=== PATIENT | female | born 2005 | race Two or more races ===

== ENCOUNTER 2024-10-26 08:35 | Emergency (ER) | payer BC ==
[~2024-10-26] VITALS: Ht 160 cm; Wt 66.9 kg
[2024-10-26 09:53] LABS: Basophils # (auto) 0 10 ^3/uL (0-0.2); Basophils % (auto) 0.7 % (0.0-2.0); Eosinophils # (auto) 0 10 ^3/uL (0-0.8); Hematocrit 39.1 % (36.0-46.0); Hemoglobin 13.9 g/dL (12.2-16.2); Lymphocytes # (auto) 0.9 10 ^3/uL (0.4-5.4); Lymphocytes % (auto) 20.1 % (10.0-50.0); Mean Corpuscular Hemoglobin 31.6 pg (28.0-32.0); Mean Corpuscular Hgb Conc. 35.6 g/dL (32.0-36.0); Mean Corpuscular Volume 88.8 fL (80.0-100.0); Monocytes # (auto) 0.5 10 ^3/uL (0-1.3); Monocytes % (auto) 10.1 % (0.0-12.0); Neutrophils # (auto) 3.1 10 ^3/uL (1.6-8.6); Neutrophils % (auto) 68.1 % (37.0-80.0); Nucleated Red Blood Cells % 0.1 %; Platelet Count (auto) 168 10^3/uL (140-450); Red Blood Cells 4.41 10^6/uL (4.0-5.20); Red Cell Distribution Width 12.6 % (11.8-14.3); White Blood Cell 4.5 10^3/uL (4.4-10.8)
[2024-10-26 10:01] LABS: Chloride 106 mmol/L (98-107); Sodium 142 mmol/L (136-145)
[2024-10-26 10:02] LABS: Anion Gap 11 (5-15); Carbon Dioxide 25 mmol/L (20-31)
[2024-10-26 10:03] LABS: Calcium 9.5 mg/dL (8.7-10.4)
[2024-10-26 10:07] LABS: Glucose 92 mg/dL (74-106)
[2024-10-26 10:08] LABS: BUN/Creatinine Ratio 12.5 (10.0-20.0)
[2024-10-26 10:11] LABS: Blood Urea Nitrogen 8 mg/dL (9-23); Potassium 3.4 mmol/L (3.5-5.1)
--- NOTE | 2024-10-26 10:30 | ED.PDOC ---
SALES OFFICER HPI Comments 19 year old female presents to the ED with chief complaint of vaginal bleeding. Patient reports that she had taken a test 2 days ago, coming back positive. Patient relays that since yesterday she had a chunk of blood and mucous come out of her vagina after going to the bathroom, but this morning she started to experience some vaginal bleeding. Patient denies any abdominal pain, dysuria, hematuria, fever, chills, nausea, vomiting, or vaginal discharge. Chief Complaint: Vaginal Bleed Time Seen by MD: 10:24 Reviewed Notes: Nurses Notes, Medications, Allergies Allergies: Coded Allergies: Methylprednisolone (Verified Allergy, Severe, 10/26/24) Information Source: Patient Mode of Arrival: Ambulatory Timing: Days Prehospital treatment: None Severity: Moderate Vaginal Discharge: None Vaginal Lesions: None Bleeding Quality: Bright Red, Clotted Onset Of Mass/Bleeding: Spontaneous Sexual Activity: Last Consensual [place]: Unknown Control: None History of: Current Associated Signs and Symptoms: Vaginal Bleeding Past Medical History PAST MEDICAL HISTORY: Denies Surgical History: Denies all surgeries SCAFFOLD ERECTOR History: No Pertinent SCAFFOLD ERECTOR History Family History Family History: Reviewed,noncontributory to illness Social History Smoker: Non-Smoker Alcohol: Denies ETOH Use Drugs: Denies Drug Use Lives In: Home Constitutional: denies: chills, diaphoresis, fatigue, fever, malaise, sweats, weakness, others EENTM: denies: blurred vision, double vision, ear bleeding, ear discharge, ear drainage, ear pain, ear ringing, eye pain, eye redness, hearing loss, mouth pain, mouth swelling, nasal discharge, nose bleeding, nose congestion, nose pain, photophobia, tearing, throat pain, throat swelling, voice changes, others Respiratory: denies: cough, hemoptysis, orthopnea, SOB at rest, shortness of breath, SOB with excertion, stridor, wheezing, others Cardiovascular: denies: chest pain, dizzy spells, diaphoresis, Dyspnea on exertion, edema, irregular heart beat, left arm pain, lightheadedness, palpitations, PND, syncope, others Gastrointestinal: denies: abdomen distended, abdominal pain, blood streaked bowels, constipated, diarrhea, dysphagia, difficulty swallowing, hematemesis, melena, nausea, poor appetite, poor fluid intake, rectal bleeding, rectal pain, vomiting, others Genitourinary: reports: abnormal vagina bleeding, ; denies: burning, dyspareunia, dysuria, flank pain, frequency, hematuria, incontinence, pain, vagina discharge, urgency, others Neurological: denies: dizziness, fainting, headache, left sided numbness, left sided weakness, numbness, paresthesia, pre-existing deficit, right sided numbness, right sided weakness, seizure, speech problems, tingling, tremors, weakness, others Musculoskeletal: denies: back pain, gout, joint pain, joint swelling, muscle pain, muscle stiffness, neck pain, others Integumetry: denies: bruises, change in color, change in hair/nails, dryness, laceration, lesions, lumps, rash, wounds, others Allergic/Immunocompromised: denies: Difficulty Healing, Frequent Infections, Hives, Itching, others Hematologic/Lymphatic: denies: anemia, blood clots, easy bleeding, easy bruising, swollen glands, others Endocrine: denies: excessive hunger, excessive sweating, excessive thirst, excessive urination, flushing, intolerance to cold, intolerance to heat, unexplained weight gain, unexplained weight loss, others Psychiatric: denies: anxiety, bipolar disorder, depression, hopeless, panic dis order, schizophrenia, sleepless, suicidal, others All Other Systems: Reviewed and Negative Physical Exam General Appearance: No Apparent Distress, Normal HEENT: Normal ENT Inspection, Pharynx Normal, TMs Normal Neck: Full Range of Motion, Non-Tender, Normal, Normal Inspection Respiratory: Chest Non-Tender, Lungs Clear, No Accessory Muscle Use, No Respiratory Distress, Normal Breath Sounds Cardiovascular: No Edema, No JVD, No Murmur, No Gallop, Normal Peripheral Pulses, Regular Rate/Rhythm Breast Exam: Deferred Gastrointestinal: No Organomegaly, Non Tender, No Pulsatile Mass, Normal Bowel Sounds, Soft Genitalia: Deferred Pelvic: Deferred Rectal: Deferred Extremities: No calf tenderness, Normal capillary refill, Normal inspection, Normal range of motion, Non-tender, No pedal edema Musculoskeletal : Apperance: Normal Neurologic: Alert, neuropsychiatrist II-XII nml as Tested, No Motor Deficits, Normal Affect, Normal Mood, No Sensory Deficits Cerebellar Function: Normal Reflexes: Normal Skin: Dry, Normal Color, Warm Lymphatic: No Adenopathy Was a procedure done? Was a procedure done?: No Differential Diagnosis (SCAFFOLD ERECTOR) Vaginal Bleeding: - Threatened X-Ray, Labs, Meds, VS Vital Signs Date Time Temp Pulse Resp B/P (MAP) Pulse Ox O2 Delivery O2 Flow Rate FiO2 10/26/24 11:41 98.7 106 16 113/97 (102) 100 98.7 10/26/24 08:54 98.5 115 16 121/77 (92) 97 98.5 Lab Test 10/26/24 10:53 10/26/24 09:38 Range/Units Urine Color Yellow Yellow Urine Clarity Turbid H Clear Urine pH 7.5 5.0-9.0 Urine Specific [place] 1.026 1.001-1.035 Urine Protein Trace H Negative Urine Ketones Negative Negative Urine Blood 2+ H Negative /uL Urine Nitrite Negative Negative Urine Bilirubin Negative Negative Urine Urobilinogen Normal Negative mg/dL Urine Leukocyte Esterase 3+ Negative /uL Urine RBC 5 0 - 4 /hpf Urine Microscopic WBC 10 H 0-5 /HPF Urine Squamous Epithelial Cells Mod <5 /hpf Urine Bacteria None seen None Seen /hpf Urine Mucus Few None Seen Urine Glucose Normal Normal mg/dL White Blood Count 4.5 4.4-10.8 10^3/uL Red Blood Count 4.41 4.0-5.20 10^6/uL Hemoglobin 13.9 12.2-16.2 g/dL Hematocrit 39.1 36.0-46.0 % Mean Corpuscular Volume 88.8 80.0-100.0 fL Mean Corpuscular Hemoglobin 31.6 28.0-32.0 pg Mean Corpuscular Hemoglobin Concent 35.6 32.0-36.0 g/dL Red Cell Distribution Width 12.6 11.8-14.3 % Platelet Count 168 140-450 10^3/uL Mean Platelet Volume 7.2 6.9-10.8 fL Neutrophils (%) (Auto) 68.1 37.0-80.0 % Lymphocytes (%) (Auto) 20.1 10.0-50.0 % Monocytes (%) (Auto) 10.1 0.0-12.0 % Eosinophils (%) (Auto) 1.0 0.0-7.0 % Basophils (%) (Auto) 0.7 0.0-2.0 % Neutrophils # (Auto) 3.1 1.6-8.6 10 ^3/uL Lymphocytes # (Auto) 0.9 0.4-5.4 10 ^3/uL Monocytes # (Auto) 0.5 0-1.3 10 ^3/uL Eosinophils # (Auto) 0 0-0.8 10 ^3/uL Basophils # (Auto) 0 0-0.2 10 ^3/uL Nucleated Red Blood Cells 0.1 % Sodium Level 142 136-145 mmol/L Potassium Level 3.4 L 3.5-5.1 mmol/L Chloride Level 106 98-107 mmol/L Carbon Dioxide Level 25 20-31 mmol/L Anion Gap 11 5-15 Blood Urea Nitrogen 8 L 9-23 mg/dL Creatinine 0.64 0.550-1.02 mg/dL Glomerular Filtration Rate Calc 130 >90 mL/min BUN/Creatinine Ratio 12.5 10.0-20.0 Serum Glucose 92 74-106 mg/dL Calcium Level 9.5 8.7-10.4 mg/dL Beta HCG, Quantitative 68.2 H 1.5-4.2 mIU/mL Time of 1ST Reevaluation: 11:24 Reevaluation 1ST: Unchanged Patient Education/Counseling: Diagnosis, Treatment Family Education/Counseling: No Family Present Additional Information The following tests were ordered, and results were reviewed by me: CBC, BMP, Beta HCG Quant, UA, ABORH Additional Information was gathered from interviewing the following independent historians: None I reviewed and agreed with the following test results read by other providers: None I discussed treatment and results with medical personnel and: patient Comprehensive systems review obtained and negative except for what is stated in the HPI. Departure 1 Departure Time of Disposition: 11:43 (Patient with a threatened miscarriage. We will discharge patient home with outpatient follow up) Impression: Primary Impression: Threatened miscarriage in early Disposition: 01 HOME / SELF CARE / HOMELESS Condition: Stable Referrals: JAREN HAM DO Additional Instructions: You have a threatened miscarriage. Your beta hcg level today was 68.2. Your beta level is too low to see anything on ultrasound. You should follow up with OBGYN within three days to recheck your blood work. If your symptoms worsen or you have any other concerns then please return to the ER. Discharged With: Self Critical Care Note Critical Care Time?: No Stability Stability form required: No Heart Score Heart Score: Heart Score Response (Comments) Value History N/A 0 EKG N/A 0 Age N/A 0 Risk Factors N/A 0 Troponin N/A 0 Total 0 I personally scribed for ESSENCE NAVA MD ([email or web address]) on 10/26/24 at 10:30. Electronically submitted by Zane Nagel ([email or web address]). ESSENCE NAVA MD October 26, 2024 10:30
[2024-10-26 10:55] LABS: Urine Bacteria None Seen /hpf (None Seen)
[2024-10-26 11:04] LABS: Urine Blood 2+ /uL (Negative); Urine Clarity Turbid (Clear); Urine Color Yellow (Yellow); Urine Mucus FEW (None Seen); Urine Protein, UAD TRACE (Negative); Urine Specific Gravity 1.026 (1.001-1.035); Urine Squamous Epithelial Cell MOD /hpf (<5); Urine Urobilinogen Normal (Negative); Urine WBC 10 /HPF (0-5); Urine pH 7.5 (5.0-9.0)
[2024-10-26 11:41] VITALS: BP 113/97; PULSE 106; RESP 16; TEMP 98.7; O2SAT 100
== END 2024-10-26 11:53 | disposition home or self-care (01) ==
LOC: ER 08:42
DX: O20.0 Threatened abortion (principal); Z79.899 Other long term (current) drug therapy
CPT/HCPCS: 36415; 80048; 81001; 84702; 85025; 86900; 86901

== ENCOUNTER 2024-10-26 20:35 | Emergency (ER) | payer BC ==
[~2024-10-26] VITALS: Ht 160 cm; Wt 65.0 kg
--- NOTE | 2024-10-26 21:19 | ED.PDOC ---
PHYSICIAN SUPPORT COORDINATOR HPI Comments 19 year old female presents to the ED with a chief complaint of vaginal bleeding onset today (10/26/24). Patient was seen in this ED today, was told she was experiencing threatened miscarriage, follow up with OBGYN. Patient states she took at home test 2 days ago, tested positive. P:0. Since she was discharged from ED, patient noticed bleeding worsen as well as abdominal pain/suprapubic pain, rates pain 10/10. She is also experiencing generalized weakness, dizziness. She was currently on Amoxicillin for tonsillitis that was diagnosed 1 week ago. Patient denies any dysuria, fever, chills, nausea, vomiting, chest pain, shortness of breath. No other symptoms or modifying factors present at this time. Chief Complaint: Abdominal Pain Time Seen by MD: 21:00 Reviewed Notes: Medications, Allergies Allergies: Coded Allergies: Methylprednisolone (Verified Allergy, Severe, 10/26/24) Information Source: Patient, Relative Mode of Arrival: Ambulatory Timing: Hours Prehospital treatment: None Severity: Moderate Vaginal Discharge: None Vaginal Lesions: None Bleeding Quality: Bright Red, Clotted Vaginal Mass: None Onset Of Mass/Bleeding: Spontaneous Sexual Activity: Control: None History of: Current Symptoms of Possible : Missed Period Associated Signs and Symptoms: Vaginal Bleeding, Abdominal Pain, Cramping Vital Signs Vital Signs Date Time Temp Pulse Resp B/P (MAP) Pulse Ox O2 Delivery O2 Flow Rate FiO2 10/26/24 22:50 98.4 78 18 122/71 (88) 100 98.4 10/26/24 22:50 Room Air* 0 21 Physical Exam General: Awake, alert and oriented. No acute distress. Skin: Skin in warm, dry and intact. Appropriate color for ethnicity. HEENT: The head is normocephalic and atraumatic. Conjunctivae are clear without exudates or hemorrhage. Sclera is non-icteric. EOM are intact. No signs of nystagmus. Eyelids are normal in appearance without swelling or lesions. Oral mucosa is pink and moist Neck: The neck is supple with normal range of motion. No JVD. Cardiac: Heart rate and rhythm are normal. No murmurs, gallops, or rubs are auscultated. Respiratory: No signs of respiratory distress. Lung sounds are clear in all lobes bilaterally without rales, rhonchi, or wheezes. Abdominal: Abdomen is soft, non-tender without distention. Bowel sounds are present and normoactive in all four quadrants. Extremities: Upper and lower extremities are atraumatic in appearance without deformity or edema. Neurological: The patient is awake, alert and oriented to person, place, and time with normal speech. Speech is clear. There is no facial asymmetry. Psychiatric: Appropriate mood and affect. Good judgement and insight. Review of Systems: REVIEW OF SYSTEMS: No fever, no chills, or fatigue HEENT: No sore throat, no earache, no congestion, no neck pain. Cardiac: No chest pain. No palpitations. Lungs: No shortness of breath, no cough. GI: No nausea, no vomiting, no diarrhea, no constipation, no abdominal pain : No dysuria, frequency, or urgency. No hematuria. Musculoskeletal: No joint pain , no joint swelling, no extremity edema. Skin: No rash, no itching. Neuro: No headache, no dizziness, no weakness Past Medical History PAST MEDICAL HISTORY: Denies Surgical History: Denies all surgeries CLINICAL PATHOLOGIST History: No Pertinent CLINICAL PATHOLOGIST History Family History Family History: Reviewed,noncontributory to illness Social History Smoker: Non-Smoker Alcohol: Denies ETOH Use Drugs: Denies Drug Use Lives In: Home Was a procedure done? Was a procedure done?: No X-Ray, Labs, Meds, VS Vital Signs Date Time Temp Pulse Resp B/P (MAP) Pulse Ox O2 Delivery O2 Flow Rate FiO2 10/26/24 22:50 98.4 78 18 122/71 (88) 100 98.4 10/26/24 22:50 Room Air* 0 21 10/26/24 20:50 98.4 118 17 138/97 (111) 99 98.4 Lab Test 10/26/24 21:10 10/26/24 20:56 Range/Units White Blood Count 5.8 # 4.4-10.8 10^3/uL Red Blood Count 4.24 4.0-5.20 10^6/uL Hemoglobin 13.5 12.2-16.2 g/dL Hematocrit 37.0 36.0-46.0 % Mean Corpuscular Volume 87.3 80.0-100.0 fL Mean Corpuscular Hemoglobin 31.8 28.0-32.0 pg Mean Corpuscular Hemoglobin Concent 36.5 H 32.0-36.0 g/dL Red Cell Distribution Width 12.4 11.8-14.3 % Platelet Count 180 140-450 10^3/uL Mean Platelet Volume 7.4 6.9-10.8 fL Neutrophils (%) (Auto) 62.8 37.0-80.0 % Lymphocytes (%) (Auto) 25.0 10.0-50.0 % Monocytes (%) (Auto) 10.7 0.0-12.0 % Eosinophils (%) (Auto) 0.7 0.0-7.0 % Basophils (%) (Auto) 0.8 0.0-2.0 % Neutrophils # (Auto) 3.6 1.6-8.6 10 ^3/uL Lymphocytes # (Auto) 1.4 0.4-5.4 10 ^3/uL Monocytes # (Auto) 0.6 0-1.3 10 ^3/uL Eosinophils # (Auto) 0 0-0.8 10 ^3/uL Basophils # (Auto) 0 0-0.2 10 ^3/uL Nucleated Red Blood Cells 0.1 % Prothrombin Time 10.4 9.3-11.8 sec Prothrombin Time INR 0.98 0.9-1.15 Sodium Level 140 136-145 mmol/L Potassium Level 3.2 L 3.5-5.1 mmol/L Chloride Level 106 98-107 mmol/L Carbon Dioxide Level 21 20-31 mmol/L Anion Gap 13 5-15 Blood Urea Nitrogen 9 9-23 mg/dL Creatinine 0.68 0.550-1.02 mg/dL Glomerular Filtration Rate Calc 128 >90 mL/min BUN/Creatinine Ratio 13.2 10.0-20.0 Serum Glucose 102 74-106 mg/dL Calcium Level 9.0 8.7-10.4 mg/dL Total Bilirubin 0.6 0.2-1.0 mg/dL Aspartate Amino Transferase (AST) 23 13-40 U/L Alanine Aminotransferase (ALT) 26 7-40 U/L Alkaline Phosphatase 75 46-116 U/L Total Protein 7.7 5.7-8.2 g/dL Albumin 5.0 H 3.2-4.8 g/dL Beta HCG, Quantitative 58.5 H 1.5-4.2 mIU/mL Urine Color Light-orange Yellow Urine Clarity Turbid H Clear Urine pH 6.5 5.0-9.0 Urine Specific [place] 1.022 1.001-1.035 Urine Protein 1+ H Negative Urine Ketones Negative Negative Urine Blood 3+ H Negative /uL Urine Nitrite Negative Negative Urine Bilirubin Negative Negative Urine Urobilinogen Normal Negative mg/dL Urine Leukocyte Esterase 3+ Negative /uL Urine RBC 35 0 - 4 /hpf Urine Microscopic WBC 32 H 0-5 /HPF Urine Squamous Epithelial Cells Mod <5 /hpf Urine Bacteria Few H None Seen /hpf Urine Mucus Few None Seen Urine Glucose Normal Normal mg/dL Current Medications Medications (Trade) Dose Ordered Sig/Codie Route Start Time Stop Time Status Last Admin Sodium Chloride 1,000 ml @ 1,000 mls/hr Q1H ONCE IV 10/26/24 21:00 10/26/24 21:59 DC 10/26/24 22:52 Acetaminophen (Ofirmev) 1,000 mg ONCE ONCE IV 10/26/24 21:00 10/26/24 21:01 DC 10/26/24 22:51 Diphenhydramine HCl (Benadryl Injection) 25 mg ONCE ONCE IV 10/26/24 22:05 10/26/24 22:06 DC 10/26/24 23:01 IMPRESSION: No intrauterine . No abnormality demonstrated. ATED BY: DEJUAN BAER MD DICTATED DATE/TIME: 10/26/242206 SIGNED BY: DEJUAN BAER MD SIGNED DATE/TIME: 10/26/242206 CC: Time of 1ST Reevaluation: 21:30 Reevaluation 1ST: Unchanged Patient Education/Counseling: Need For Follow Up Family Education/Counseling: Need For Follow Up Departure 1 Departure Time of Disposition: 23:45 Impression: Primary Impression: Miscarriage Disposition: 01 HOME / SELF CARE / HOMELESS Condition: Stable Additional Instructions: ED DISCHARGE INSTRUCTIONS Instructions: Please read all instructions provided in this packet carefully. Although you have been discharged from the Emergency Department, this does not mean that you have a "clean bill of health". No definitive diagnosis for your symptoms has been made today. It is possible that you are in the process of developing a serious illness. This is why you must return to the ED without fail if any new or worsening symptoms (especially if your symptoms include going through more than 1 pad per hour, lightheadedness, dizziness, weakness, chest pain, trouble breathing, worsened abdominal pain, fever, headache, confusion, trouble seeing, or trouble walking) Keep upcoming appointment with the PHYSICIAN SUPPORT COORDINATOR to be rechecked within 2 days. If you are unable to get an appointment, return to the ED for re-evaluation. Miscarriage: Care Instructions Overview For some, the loss of a can be very hard. You may wonder why it happened. Miscarriages are common and are not caused by exercise, stress, or sex. Most happen because the fertilized egg in the uterus does not develop normally. There is no treatment that can stop a miscarriage. If you are having a miscarriage, you have several options. As long as you do not have heavy blood loss, fever, weakness, or other signs of infection, you can let a miscarriage follow its own course. This can take several days. If you don't want to wait, you can take medicine to help the tissue pass. Or you can have a surgical procedure to remove the tissue. Your body will recover over the next several weeks. Having a miscarriage does not mean you cannot have a normal in the future. Follow-up care is a marte part of your treatment and safety. Be sure to make and go to all appointments, and call your doctor if you are having problems. It's also a good idea to know your test results and keep a list of the medicines you take. How can you care for yourself at home? You will probably have some vaginal bleeding for 1 to 2 weeks. It may be similar to or slightly heavier than a normal period. The bleeding should get medical delivery technician after a week. Use sanitary pads until you stop bleeding. Using pads makes it easier to monitor your bleeding. Take an [id number] pain medicine, such as acetaminophen (Tylenol), ibuprofen (Advil, Motrin), or naproxen (Aleve) for cramps. Read and follow all instructions on the label. You may have cramps for several days after the misca rriage. Do not take two or more pain medicines at the same time unless the doctor told you to. Many pain medicines have acetaminophen, which is Tylenol. Too much acetaminophen (Tylenol) can be harmful. Ask your doctor when it is okay for you to have sex. You may return to your normal activities if you feel well enough to do so. If you would like to try to get again, it is usually safe whenever you feel ready. Talk with your doctor about any future plans. If you do not want to get , ask your doctor about control. You can get again before your next period starts if you are not using control. You may be low in iron because of blood loss. Eat a balanced diet that is high in iron and vitamin C. Foods rich in iron include red meat, shellfish, eggs, beans, and leafy green vegetables. Foods high in vitamin C include citrus fruits, tomatoes, and broccoli. Talk to your doctor about whether you need to take iron pills or a multivitamin. For some, the loss of a can be very hard. You may have a range of emotions. If you need help coping, talking to family members, friends, a counselor, or your doctor may help. When should you call for help? Call 911 anytime you think you may need emergency care. For example, call if: You passed out (lost consciousness). You have severe vaginal bleeding. You are dizzy or lightheaded, or you feel like you may faint. Call your doctor now or seek immediate medical care if: You have new or worse pain in your belly or pelvis. You have a fever. You have vaginal discharge that smells bad. Watch closely for changes in your health, and be sure to contact your doctor if: You do not get better as expected. Credits for Miscarriage: Care Instructions Current as of: October 20, 2023 Author: [employer] Staff Clinical Review Board All [employer] education is reviewed by a team that includes physicians, nurses, advanced practitioners, registered dieticians, and other healthcare professionals. Comments 19-year-old female who presented to the emergency department with vaginal bleeding. Beta hCG down 58. No intrauterine patient will ultrasound. Patient is not hypotensive, tachycardic. Hemoglobin and hematocrit within normal limits. Patient is felt stable for discharge home to follow up with counter control operator which she has an appointment with 2 days. She is advised to return to the emergency department earlier with any worsening or concerning symptoms I reviewed the following notes from the pt's past medical encounters: Previous encounter 10/26/2024 for threatened miscarriage The following tests were ordered, and results were reviewed by me: (See diagnostic results section) The following test were independently interpreted by me: N/A Additional information was gathered from interviewing the following independent historians: Patient's mother at bedside I reviewed and agreed with the following test results read by other providers: N/A I discussed treatments and results with patient Decision regarding hospitalization or escalation of hospital level of care: Risks and benefits of admission for further treatment of patient's condition was considered however due to patient's stable condition patient will be discharged to follow up closely or return to care for worsening of condition or inability to follow up. Critical Care Note Critical Care Time?: No Stability Stability form required: No I personally scribed for SAMIR WISE MD ([email or web address]) on 10/26/24 at 21:19. Electronically submitted by Tg Shields ([email or web address]). I personally scribed for SAMIR WISE MD ([email or web address]) on 10/26/24 at 21:20. Electronically submitted by Tg Shields ([email or web address]). I personally scribed for SAMIR WISE MD ([email or web address]) on 10/26/24 at 23:32. Electronically submitted by Tg Shields ([email or web address]). SAMIR WISE MD October 26, 2024 21:19
[2024-10-26 21:28] LABS: Basophils # (auto) 0 10 ^3/uL (0-0.2); Basophils % (auto) 0.8 % (0.0-2.0); Eosinophils # (auto) 0 10 ^3/uL (0-0.8); Eosinophils % (auto) 0.7 % (0.0-7.0); Hemoglobin 13.5 g/dL (12.2-16.2); Lymphocytes # (auto) 1.4 10 ^3/uL (0.4-5.4); Mean Corpuscular Hemoglobin 31.8 pg (28.0-32.0); Mean Corpuscular Volume 87.3 fL (80.0-100.0); Monocytes # (auto) 0.6 10 ^3/uL (0-1.3); Monocytes % (auto) 10.7 % (0.0-12.0); Neutrophils # (auto) 3.6 10 ^3/uL (1.6-8.6); Neutrophils % (auto) 62.8 % (37.0-80.0); Nucleated Red Blood Cells % 0.1 %; Platelet Count (auto) 180 10^3/uL (140-450); Red Blood Cells 4.24 10^6/uL (4.0-5.20); Red Cell Distribution Width 12.4 % (11.8-14.3); White Blood Cell 5.8 10^3/uL (4.4-10.8)
[2024-10-26 21:29] LABS: Mean Corpuscular Hgb Conc. 36.5 g/dL (32.0-36.0)
[2024-10-26 21:43] LABS: INR 0.98 (0.9-1.15); Prothrombin Time 10.4 sec (9.3-11.8)
[2024-10-26 21:46] LABS: Alanine Aminotransferase 26 U/L (7-40); Alkaline Phosphatase 75 U/L (46-116); Anion Gap 13 (5-15); Aspartate Aminotransferase 23 U/L (13-40); BUN/Creatinine Ratio 13.2 (10.0-20.0); Bilirubin, Total 0.6 mg/dL (0.2-1.0); Blood Urea Nitrogen 9 mg/dL (9-23); Carbon Dioxide 21 mmol/L (20-31); Chloride 106 mmol/L (98-107); Glucose 102 mg/dL (74-106); Sodium 140 mmol/L (136-145); Total Protein 7.7 g/dL (5.7-8.2)
[2024-10-26 21:48] LABS: Potassium 3.2 mmol/L (3.5-5.1)
--- NOTE | 2024-10-26 22:09 | DVH ---
OB ULTRASOUND <14 WEEKS: HISTORY: Vaginal Bleeding TECHNIQUE: Multiple real-time grayscale sonographic images of the pelvis with duplex Doppler color f low, spectral and M-mode analysis. COMPARISON: None FINDINGS: Uterus measures approximately 6.8 x 4.3 x 3.5 cm and appears unremarkable. Endometrium measures appro ximately 10 mm in thickness and demonstrates normal homogeneous echogenicity. No evidence of intraute rine . Right ovary measures approximately 2.9 x 2.2 x 1.4 cm and appears unremarkable with normal Doppler co nazario flow. Left ovary measures approximately 2.6 x 1.6 x 1.1 cm and appears unremarkable with normal Doppler col or flow. No evidence of pelvic mass or fluid collection. IMPRESSION: No intrauterine . No abnormality demonstrated.
[2024-10-26 22:50] VITALS: BP 122/71; PULSE 78; RESP 18; TEMP 98.4; O2SAT 100
[2024-10-26] MEDS: ACETAMINOPHEN IV 1000 MG/100ML (10MG/ML) IV ONE (22:51)
[2024-10-26] MEDS: SODIUM CHLORIDE 0.9% 1,000 ML IV ONE (22:52)
[2024-10-26] MEDS: diphenhdrAMINE HCL 50 MG/1 ML VL IV ONE (23:01)
[2024-10-26 23:28] LABS: Urine Bacteria FEW /hpf (None Seen); Urine Blood 3+ /uL (Negative); Urine Clarity Turbid (Clear); Urine Color Light-Orange (Yellow); Urine Mucus FEW (None Seen); Urine Protein, UAD 1+ (Negative); Urine Specific Gravity 1.022 (1.001-1.035); Urine Squamous Epithelial Cell MOD /hpf (<5); Urine Urobilinogen Normal (Negative); Urine WBC 32 /HPF (0-5); Urine pH 6.5 (5.0-9.0)
== END 2024-10-27 00:07 | disposition home or self-care (01) ==
LOC: ER 20:38
DX: O20.0 Threatened abortion (principal)
CPT/HCPCS: 36415; 76801; 80053; 81001; 84702; 85025; 85610; 96361; 96374; 96375; 99285; J1200; J7030; J0131

== ENCOUNTER 2024-12-24 22:23 | Emergency (ER) | payer BC ==
[~2024-12-24] VITALS: Ht 160 cm; Wt 69.0 kg
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
[2024-12-24 23:40] VITALS: BP 129/78; PULSE 77; RESP 18; TEMP 98.3; O2SAT 100
[2024-12-24] MEDS: IBUPROFEN 600 MG TAB PO ONE (23:48)
--- NOTE | 2024-12-25 01:23 | DVH ---
EXAM: XY CERVICAL SPINE 3V HISTORY: inury/pain COMPARISON: None TECHNIQUE: AP, lateral, and odontoid views of the cervical spine were performed. FINDINGS: Grade 1 anterolisthesis at C2-C3, C3-C4, C4-C5. Otherwise normal alignment. Vertebral body heights a re maintained. No abnormal widening of the atlantoaxial interval. No acute fracture. No prevertebra l soft tissue swelling. Lung apices are clear IMPRESSION: No acute fracture or traumatic malalignment.
[2024-12-25] MEDS ORDERED: IBUP-1456 PO (01:35)
== END 2024-12-25 02:08 | disposition home or self-care (01) ==
LOC: ER 22:23
DX: S16.1XXA Strain of muscle, fascia and tendon at neck level, initial encounter (principal); Z88.1 Allergy status to other antibiotic agents; X58.XXXA Exposure to other specified factors, initial encounter; Y93.89 Activity, other specified; Y92.89 Other specified places as the place of occurrence of the external cause; Y99.8 Other external cause status
CPT/HCPCS: 72040

== ENCOUNTER → 2025-04-14 | Outpatient (CLI) | payer BC ==
[2025-04-14 10:13] LABS: Hematocrit 41.6 % (36.0-46.0); Hemoglobin 14.3 g/dL (12.2-16.2); Mean Corpuscular Hemoglobin 30.9 pg (28.0-32.0); Mean Corpuscular Volume 90.1 fL (80.0-100.0); Nucleated Red Blood Cells % 0.1 %
[2025-04-14 10:26] LABS: Urine Protein, UAD Negative (Negative)
[2025-04-14 11:02] LABS: Alanine Aminotransferase 17 U/L (7-40); Alkaline Phosphatase 81 U/L (46-116); Anion Gap 12 (5-15); BUN/Creatinine Ratio 14.1 (10.0-20.0); Blood Urea Nitrogen 10 mg/dL (9-23); Calcium 9.4 mg/dL (8.7-10.4); Carbon Dioxide 22 mmol/L (20-31); Chloride 106 mmol/L (98-107); Glucose 82 mg/dL (74-106); Potassium 3.5 mmol/L (3.5-5.1); Sodium 140 mmol/L (136-145)
[2025-04-14 11:03] LABS: Bilirubin, Total 0.7 mg/dL (0.2-1.0)
[2025-04-14 11:04] LABS: Albumin 5.3 g/dL (3.2-4.8); Total Protein 8.4 g/dL (5.7-8.2)
[2025-04-15 14:07] LABS: Anti-Nuclear Antibody Direct Negative (Negative); Anti-dsDNA Antibody 1 IU/mL (0-9); Antiscleroderma-70 Antibody <0.2 AI (0.0-0.9); Sjogren's Anti-SS-A Antibody <0.2 AI (0.0-0.9); Sjogren's Anti-SS-B Antibody <0.2 AI (0.0-0.9)
== END | disposition home or self-care (01) ==
LOC: LAB 09:34
PROVIDERS: ATTEND Internal Medicine
DX: L30.9 Dermatitis, unspecified (principal)
CPT/HCPCS: 36415; 80053; 81001; 82785; 84439; 84443; 85025; 85652; 86160; 86225; 86235; 86376; 86431